=== PATIENT | male | born 2000 | race Two or more races ===

== ENCOUNTER 2025-01-31 13:09 | Emergency (ER) | payer OTHER ==
[~2025-01-31] VITALS: Ht 180.3 cm; Wt 69.9 kg
[2025-01-31] MEDS ORDERED: MECLIZINE HCL 25 MG TABLET PO STA (16:21)
[2025-01-31] MEDS ORDERED: MECLIZINE HCL 25 MG TABLET PO ONE (17:00)
== END 2025-01-31 17:29 | disposition home or self-care (01) ==
LOC: ER 14:08
DX: H81.10 Benign paroxysmal vertigo, unspecified ear (principal)